=== PATIENT | female | born 1995 | race Caucasian/White ===

== ENCOUNTER 2017-01-10 11:31 | Emergency (ER) | payer OTHER ==
[~2017-01-10] VITALS: Ht 162.6 cm; Wt 59.0 kg
[2017-01-10 11:33] VITALS: BP_SYST 123
[2017-01-10] MEDS ORDERED: CLINDAMYCIN 600 mg/50mL D5W 50 ML IV ONE (12:00)
[2017-01-10 12:31] VITALS: BP_SYST 120
== END 2017-01-10 12:31 | disposition home or self-care (01) ==
LOC: SED 11:31
DX: N61.0 Mastitis without abscess (principal)
CPT/HCPCS: 96365; 99284; J3490